=== PATIENT | female | born 1990 | race Caucasian/White ===

== ENCOUNTER 2018-06-13 14:30 | Emergency (ER) | payer OTHER ==
[~2018-06-13] VITALS: Ht 157.5 cm; Wt 61.2 kg
--- NOTE | 2018-06-13 16:23 | PHYS DOC ---
Past History Past Medical History: Cancer Past Surgical History: No Surgical History Alcohol Use: Occasionally Drug Use: Marijuana Adult General Chief Complaint Chief Complaint: UPPER EXTREMITY INJURY HPI HPI 27-year-old female presents after fall in a barn 2 days ago. The patient fell and had pain in her right and left forearms. She was splinted by EMS, but they said they could not take her to so she did not get transported. The patient hoped that her arms are broken, but is concerned as she still has significant amount of pain and cannot move them without a lot of pain. She adamantly denies that she is abused or that this was caused by another person. She is unsure how she fell or how she landed. She is not sure if she was knocked unconscious. At this time, she has bilateral forearm pain, right rib pain, and right ankle pain. She has multiple superficial scratches. Review of Systems Review of Systems Constitutional: Denies fever or chills [] Eyes: Denies change in visual acuity, redness, or eye pain [] HENT: Denies nasal congestion or sore throat [] Respiratory: Denies cough or shortness of breath [] Cardiovascular: No additional information not addressed in HPI [] GI: Denies abdominal pain, nausea, vomiting, bloody stools or diarrhea [] : Denies dysuria or hematuria [] Musculoskeletal: Bilateral arm pain, right ankle pain, right rib pain[] Integument: Denies rash or skin lesions [] Neurologic: Denies headache, focal weakness or sensory changes [] Endocrine: Denies polyuria or polydipsia [] All other systems were reviewed and found to be within normal limits, except as documented in this note. Current Medications Current Medications Current Medications Medications (Trade) Dose Ordered Sig/[facility] Start Time Stop Time Status Last Admin Dose Admin Morphine Sulfate (Morphine 4mg Syringe) 4 mg 1X ONCE 06/13/18 16:30 06/13/18 16:31 UNV Ondansetron HCl (Zofran) 4 mg 1X ONCE 06/13/18 16:30 06/13/18 16:31 UNV Sodium Chloride 1,000 ml @ 1,000 mls/hr 1X ONCE 06/13/18 16:30 06/13/18 17:29 UNV Allergies Allergies Allergies Coded Allergies Type Severity Reaction Last Updated Verified Sulfa (Sulfonamide Antibiotics) Allergy Unknown 06/13/18 Yes Physical Exam Physical Exam Constitutional: Well developed, well nourished, no acute distress, non-toxic appearance. Tearful.[] HENT: Normocephalic, atraumatic, bilateral external ears normal, oropharynx moist, no oral exudates, nose normal. [] Eyes: PERRLA, EOMI, conjunctiva normal, no discharge. [] Neck: Normal range of motion, no tenderness, supple, no stridor. [] Cardiovascular:Heart rate regular rhythm, no murmur [] Lungs & Thorax: Bilateral breath sounds clear to auscultation. Tenderness over right ribs. [] Abdomen: Bowel sounds normal, soft, no tenderness, no masses, no pulsatile masses. [] Skin: Warm, dry, no erythema, no rash. [] Back: No tenderness, no CVA tenderness. [] Extremities: Bilateral forearms in splints. Tender to palpation, distal forearm swelling with some ecchymosis. Right lateral ankle tenderness.[] Neurologic: Alert and oriented X 3, normal motor function, normal sensory function, no focal deficits noted. [] Psychologic: Affect normal, judgement normal, mood normal. [] Current Patient Data Vital Signs Vital Signs Date Time Temp Pulse Resp B/P (MAP) Pulse Ox O2 Delivery O2 Flow Rate FiO2 06/13/18 14:30 98.1 90 16 100 Room Air EKG EKG [] Radiology/Procedures Radiology/Procedures [] Course & Med Decision Making Course & Med Decision Making Pertinent Labs and Imaging studies reviewed. (See chart for details) The patient does not seem to be telling us the complete story. EMS knows the patient and took her to [facility] 2 days ago. She was placed in splints and was supposed to go to at that time but refused. She appeared to be intoxicated or on drugs at that time. She does not appear to be intoxicated at this time. Her urine drug screen is pending. Patient has comminuted fractures of her bilateral, distal radius. Ulna are intact bilaterally. Patient was given 4 mg of Zofran and 8 mg of morphine in the ED. The patient would like to go to . We have contacted transfer center and the decision is pending. Signing the patient out to Dr. Casillas at 1854. [] Dragon Disclaimer Dragon Disclaimer This electronic medical record was generated, in whole or in part, using a voice recognition dictation system. Departure Departure: Impression: Primary Impression: Fracture of both radius bones Disposition: XFER SHT-TRM HOSP Condition: STABLE Referrals: PCP,NO (PCP) Problem Qualifiers Primary Impression: Fracture of both radius bones Encounter type: initial encounter Fracture type: closed Qualified Codes: S52.91XA - Unspecified fracture of right forearm, initial encounter for closed fracture; S52.92XA - Unspecified fracture of left forearm, initial encounter for closed fracture JAH RESENDIZ DO Jun 13, 2018 16:23
[2018-06-13] MEDS ORDERED: IV NORMAL SALINE 1,000ML 1,000 ML IV ONE (16:30)
[2018-06-13] MEDS ORDERED: MORPHINE SULFATE 4 MG/ML DISP.SYRIN. IV ONE ×2 (16:30→18:45)
[2018-06-13] MEDS ORDERED: ONDANSETRON PF 4 MG/2 ML VIAL. IV ONE (16:30)
[2018-06-13 18:48] VITALS: BP 107/61
[2018-06-13] MEDS ORDERED: MORPHINE SULFATE 10 MG/ML SYRINGE. SQ ONE (20:00)
--- NOTE | 2018-06-13 20:23 | RAD ---
History: Injury from fall 3 views right ankle: AP lateral oblique views The visualized osseous structures appear normal. There is mild soft tissue swelling over the lateral malleolus. IMPRESSION: Soft tissue swelling over the lateral malleolus could be secondary to ligamentous injury. There is no evidence of fracture or dislocation. End impression 4 view C-spine AP lateral open mouth and odontoid views There is minimal anterolisthesis of C4 on C5 and C5 on C6. There is reversal of normal cervical lordosis at C5-C6. The facets appear perched or even jumped at this level. There is minimal loss of stature of the C6 vertebral body. There is mild soft tissue prominence at this level. The dens appears normal. The C1-C2 relationship is normal. There is degenerative changes at C6-C7 with marginal spurring of endplates. IMPRESSION: Possible perched or jumped facet at C5-C6. There may impaction of superior endplate of C6 as well. End impression Ribs left with PA chest History: Pain PA view of the chest and dedicated views of the left ribs were obtained. The heart and pulmonary vessels appear normal. The lungs and pleural margins are clear. The visualized osseous structures appear intact. There is dextro convex scoliosis of the thoracic spine. Impression: No acute findings. No evidence of a bony displaced rib fracture. End impression 3 views bilateral wrist: AP lateral oblique views of the wrists bilaterally On the right there is a moderately comminuted fracture of the distal radius with impaction and mild posterior displacement. On the left there is a mildly comminuted fracture of the distal radius with impaction and mild posterior angulation. IMPRESSION: Fractures of the distal radius bilaterally. End impression 2 view bilateral forearm AP lateral views of the forearm bilaterally There is fractures the distal radius bilaterally. The remaining visualized osseous structures appear normal. IMPRESSION: Fractures of distal radius bilaterally. See 4 view C-spine. End impression These results were called to and verified by read back at the time of dictation. FOR INTERNAL CODING PURPOSES RESULT CODE: (C) Electronically signed by: Greg Huitron III, MD (06/13/2018 8:19 PM) [facility]
[2018-06-13] MEDS ORDERED: CONTRAST GIVEN MC PRN (21:00)
[2018-06-13] MEDS ORDERED: IOHEXOL 300 MG/ML 75 ML VIAL. IV ONE (21:00)
--- NOTE | 2018-06-13 21:35 | RAD ---
CT Head W/O Contrast: History: Fall 2-4 days ago. Right sided pain behind ear/neck and radiating to right front of chest. Patient shielded Comparison: none Axial images were obtained without contrast. The reyna and white matter appears normal and symmetrical for the patients age. There is no mass effect, extraaxial fluid collections or hydrocephalus. There is no gross bleed. There is no focal loss of reyna-white matter distinction to suggest acute ischemia, i.e. stroke. Impression: No acute findings. End impression CT C-Spine without contrast: Clinical History: Fall 2-4 days ago. Right sided pain behind ear/neck and radiating to right front of chest. Patient shielded Technique: Axial helical images of the cervical spine were obtained without contrast, axial coronal and sagittal reconstruction was performed. Findings: There is reversal of the normal cervical lordosis centered at C5-C6. Visualized osseous structures appear normal. There is mild deformity of the superior endplate of C6 which is likely chronic as there is no fracture line. There is no prevertebral soft tissue swelling. Impression: 1. Reversal of the normal cervical lordosis and deformity of C6 is felt to be chronic. There is no fracture and there is no acute malalignment. 2. No acute findings. Clinical correlation suggested. PQRS Compliance Statement: One or more of the following individualized dose reduction techniques were utilized for this examination: 1. Automated exposure control 2. Adjustment of the mA and/or kV according to patient size 3. Use of iterative reconstruction technique Electronically signed by: Greg Huitron III, MD (06/13/2018 9:32 PM) [facility]
[2018-06-13 21:38] LABS: BASO # 0.1 x10^3/uL (0.0-0.2); BASO % 1 % (0-3); EOS # 0.2 x10^3/uL (0.0-0.7); EOS % 3 % (0-3); HEMATOCRIT 33.6 % (36.0-47.0); HEMOGLOBIN 11.4 g/dL (12.0-15.5); LYMPH # 1.7 x10^3/uL (1.0-4.8); LYMPH % 29 % (24-48); MEAN CORPUSCULAR HEMOGLOBIN 30 pg (25-35); MEAN CORPUSCULAR HGB CONC 34 g/dL (31-37); MEAN CORPUSCULAR VOLUME 89 fL (79-100); MONO # 0.6 x10^3/uL (0.0-1.1); MONO % 11 % (0-9); NEUT # 3.2 x10^3uL (1.8-7.7); NEUT % 56 % (31-73); PLATELET COUNT 145 x10^3/uL (140-400); RED BLOOD COUNT 3.79 x10^6/uL (3.50-5.40); RED CELL DISTRIBUTION WIDTH 13.8 % (11.5-14.5); WHITE BLOOD COUNT 5.8 x10^3/uL (4.0-11.0)
[2018-06-13 22:15] LABS: ALBUMIN 3.2 g/dL (3.4-5.0); ALBUMIN/GLOBULIN RATIO 0.9 (1.0-1.7); CALCIUM 8.5 mg/dL (8.5-10.1); CREATININE 0.7 mg/dL (0.6-1.0); GFR 100.4; POTASSIUM 3.2 mmol/L (3.5-5.1); TOTAL BILIRUBIN 0.6 mg/dL (0.2-1.0); TOTAL PROTEIN 6.7 g/dL (6.4-8.2)
--- NOTE | 2018-06-13 22:32 | RAD ---
3 view right and left elbow 06/13/2018 CLINICAL INDICATION: Bilateral wrist fractures. COMPARISON: None. FINDINGS: Right elbow: No acute fracture or traumatic malalignment. No significant elbow joint effusion. There is an intravenous catheter at the antecubital fossa. Partial visualization of forearm splinting device. Left elbow: No acute fracture or traumatic malalignment. Joint spaces maintained. No significant elbow joint effusion. IMPRESSION: No acute osseous abnormality in either elbow. Electronically signed by: Juanito Miller MD (06/13/2018 10:29 PM) [facility]
--- NOTE | 2018-06-13 23:48 | RAD ---
INDICATION: Omni 300, 75ml IV. Fell out of barn 2-4 days ago. Pain in upper right chest. Hx cervical cancer; invasive metastatic carcinoma w/chemo and radiation. COMPARISON: None. TECHNIQUE: Axial CT images obtained through the chest, abdomen and pelvis with contrast. One or more of the following individualized dose reduction techniques were utilized for this examination: 1. Automated exposure control; 2. Adjustment of the mA and/or kV according to patient size; 3. Use of iterative reconstruction technique. FINDINGS: Chest: No evidence of pneumothorax. No focal airspace consolidation. The thoracic aorta is not aneurysmal. Portion of a ascending thoracic aorta obscured by motion. [place] shaped soft tissue density anterior mediastinum. Could be from thymic tissue. Scoliotic curvature of the spine. Sub-4 mm right lower lung nodule. Abdomen and pelvis: The abdominal aorta is not aneurysmal. There are some enlarged lymph nodes in the groin bilaterally. For example in the right groin measuring up to about 10 mm short axis. Central regional low density within the liver measuring up to approximately 41 x 20 mm. No peripancreatic fluid collection. No perisplenic hemorrhage. No left-sided hydronephrosis. No right-sided hydronephrosis. Subcentimeter low-density right renal lesion. Most commonly from causes such as cyst in a patient of this age. Urinary bladder is partially distended at time of exam. No dilated loops of bowel to suggest obstruction. Fullness of right adnexa. No dilated loops of bowel to suggest obstruction. Scoliotic curvature of the spine. IMPRESSION: 1. No evidence of vascular injury. 2. There is a central low density masslike structure within the liver. Could be neoplastic in nature given the patient's reported history but if more complete characterization is desired a nonemergent liver protocol MRI could further evaluate. Benign lesions the liver could also have this appearance and correlation is needed with the patient's history. Causes such as a hepatic contusion would be considered less likely given the appearance and location. 3. Right lung nodule is seen and follow-up could be obtained to ensure no growth given the patient's reported history. 4. Scoliotic curvature of spine. Electronically signed by: Eric Chirinos MD (06/13/2018 11:44 PM) [facility]
[2018-06-14] MEDS ORDERED: MORPHINE SULFATE 10 MG/ML SYRINGE. SQ ONE
== END 2018-06-14 00:28 | disposition short-term general hospital (02) ==
LOC: ER 14:30
DX: S52.502A Unspecified fracture of the lower end of left radius, initial encounter for closed fracture (principal); S52.501A Unspecified fracture of the lower end of right radius, initial encounter for closed fracture; M25.571 Pain in right ankle and joints of right foot; R07.81 Pleurodynia; Z88.2 Allergy status to sulfonamides; W18.39XA Other fall on same level, initial encounter; Y93.89 Activity, other specified; Y92.89 Other specified places as the place of occurrence of the external cause; Y99.8 Other external cause status
CPT/HCPCS: 29125; 36415; 70450; 71101; 71260; 72040; 72125; 73080; 73090; 73110; 73610; 74177; 80053; 85025; 96372; 96374; 96375; 96376; 99285; J2270; J2405; Q9967; J7030

== ENCOUNTER 2019-02-27 13:22 | Emergency (ER) | payer MEDICAID, OTHER ==
[2019-02-27 13:54] VITALS: BP 100/58
[2019-02-27] MEDS ORDERED: IV NORMAL SALINE 1,000ML 1,000 ML IV SCH (13:56)
[2019-02-27] MEDS ORDERED: ONDANSETRON PF 4 MG/2 ML VIAL. IV ONE (14:00)
--- NOTE | 2019-02-27 14:31 | PHYS DOC ---
Past History Past Medical History: Cancer Past Surgical History: No Surgical History Alcohol Use: Occasionally Drug Use: Marijuana Adult General Chief Complaint Chief Complaint: ABDOMINAL PAIN IN HPI HPI Patient is a 28-year-old female A1 who presents at 20 weeks 6 days gestational age per EDC that patient provided. Patient states she has been having some pelvic cramping for the last few days but then today she was arrested and taken to residential and cramping had gotten much worse. She states that she is having symptoms very similar to contractions and states that it's about every 7 minutes right now. Patient rates her pain at a 7 to an 8 out of 10. She denies any chest pain or shortness of breath. She denies any nausea or vomiting.[] Review of Systems Review of Systems Constitutional: Denies fever or chills [] Respiratory: Denies cough or shortness of breath [] Cardiovascular: No additional information not addressed in HPI [] GI: Destrehan of lower abdominal/pelvic pain without vomiting or diarrhea [] : Denies dysuria or hematuria. Denies vaginal bleeding. [] Musculoskeletal: Complains of lower back pain [] All other systems were reviewed and found to be within normal limits, except as documented in this note. Current Medications Current Medications Current Medications Medications (Trade) Dose Ordered Sig/[facility] Start Time Stop Time Status Last Admin Dose Admin Ondansetron HCl (Zofran) 4 mg 1X ONCE 02/27/19 14:00 02/27/19 14:02 DC Sodium Chloride 1,000 ml @ 1,000 mls/hr Q1H 02/27/19 13:56 02/27/19 14:55 Allergies Allergies Allergies Coded Allergies Type Severity Reaction Last Updated Verified Sulfa (Sulfonamide Antibiotics) Allergy Unknown 06/13/18 Yes Physical Exam Physical Exam Constitutional: Well developed, well nourished, no acute distress, non-toxic appearance. [] HENT: Normocephalic, atraumatic, bilateral external ears normal, oropharynx moist, no oral exudates, nose normal. [] Eyes: PERRLA, EOMI, conjunctiva normal, no discharge. [] Neck: Normal range of motion, no tenderness, supple, no stridor. [] Cardiovascular: Mildly tachycardic rate with regular rhythm[] Lungs & Thorax: Bilateral breath sounds clear to auscultation [] Abdomen: Bowel sounds normal, gravid. [] [employer] ARCHITECT: Pelvic exam was performed with nurse information and referral director present. Closed cervix visualized. Skin: Warm, dry, no erythema, no rash. [] Extremities: No tenderness, no cyanosis, no clubbing, ROM intact. [] Neurologic: Alert and oriented X 3, no focal deficits noted. [] EKG EKG [] Radiology/Procedures Radiology/Procedures [] Impressions: PROCEDURE: OB > 14 WKS W/TV EXAM: Obstetrics sonogram. HISTORY: Pain. TECHNIQUE: Sonographic imaging of a gravid uterus was performed. COMPARISON: None. FINDINGS: There is a single intrauterine fetus in cephalic presentation with a normal heart rate of 139 bpm. The amniotic fluid index is normal at 12.6 cm. The cervix is closed and shortened to a measurement of 1.9 cm transvaginally. There are normal umbilical cord systolic to diastolic Doppler ratios. The stomach, kidneys, bladder, spine, brain, facial profile, extremities and heart are unremarkable. There is a three-vessel umbilical cord with normal insertion. body motion is seen during the exam. There is a grade 1 fundal placenta without evidence of previa. The biparietal diameter is 6.5 cm, corresponding with 26 weeks and 1 day. The head circumference is 23.8 cm, corresponding with 25 weeks and 6 days. The abdominal circumference is 21.53 cm, corresponding with 26 weeks and 0 days. The femoral length is 5.2 cm, corresponding with 27 weeks and 4 days. The estimated gestational age patient combined ultrasound measurements is 26 weeks and 3 days and the estimated due date is 06/02/2019. The estimated weight is 954 g. IMPRESSION: 1. Single imaging fetus in cephalic presentation with a normal heart rate and gestational age based on ultrasound measurements of 26 weeks and 3 days. 2. Shortened cervix measuring 1.9 cm transvaginally. The cervix is closed. No funneling is seen. Electronically signed by: Dhara Moreno MD (02/27/2019 3:16 PM) [facility] [place]CTATED AND SIGNED BY: DHARA MORENO MD DATE: 02/27/19 1516 Course & Med Decision Making Course & Med Decision Making Pertinent Labs and Imaging studies reviewed. (See chart for details) A chest case was discussed with Dr. Franz who agrees to accept patient in transfer to [facility] L&D floor. Prior to transfer of patient, patient left the department without notifying staff. Attempts were made to contact Police Department to return patient to the emergency room in order to remove her IV. [place] [employer] notified staff that they were not able to bring patient to emergency room against her will despite having left with IV in place. Dragon Disclaimer Dragon Disclaimer This electronic medical record was generated, in whole or in part, using a voice recognition dictation system. Departure Departure: Impression: Primary Impression: Abdominal pain affecting Disposition: 07 AGAINST MEDICAL ADVICE (patient eloped from emergency room without notifying staff) Condition: STABLE Referrals: PCP,NO (PCP) KAILA ANDERSON Jr. DO Feb 27, 2019 14:31
[2019-02-27 14:33] LABS: BASO % 0 % (0-3); EOS # 0.1 x10^3/uL (0.0-0.7); EOS % 1 % (0-3); HEMATOCRIT 37.7 % (36.0-47.0); HEMOGLOBIN 12.7 g/dL (12.0-15.5); LYMPH # 1.5 x10^3/uL (1.0-4.8); LYMPH % 18 % (24-48); MEAN CORPUSCULAR HEMOGLOBIN 31 pg (25-35); MEAN CORPUSCULAR HGB CONC 34 g/dL (31-37); MEAN CORPUSCULAR VOLUME 92 fL (79-100); MONO # 0.6 x10^3/uL (0.0-1.1); MONO % 8 % (0-9); NEUT # 5.8 x10^3uL (1.8-7.7); NEUT % 73 % (31-73); PLATELET COUNT 145 x10^3/uL (140-400); RED BLOOD COUNT 4.11 x10^6/uL (3.50-5.40); RED CELL DISTRIBUTION WIDTH 13.1 % (11.5-14.5); WHITE BLOOD COUNT 7.9 x10^3/uL (4.0-11.0)
[2019-02-27 14:35] LABS: CALCIUM 8.7 mg/dL (8.5-10.1); CREATININE 0.5 mg/dL (0.6-1.0); GFR 146.9; POTASSIUM 4.1 mmol/L (3.5-5.1)
[2019-02-27 14:41] LABS: ALBUMIN 2.7 g/dL (3.4-5.0); DIRECT BILIRUBIN 0.1 mg/dL (0.0-0.2); MAGNESIUM 1.8 mg/dL (1.8-2.4); TOTAL BILIRUBIN 0.1 mg/dL (0.2-1.0); TOTAL PROTEIN 6.6 g/dL (6.4-8.2)
[2019-02-27 15:00] LABS: BACTERIA,URINE MOD /HPF (0-FEW); BILIRUBIN,URINE NEG (NEG); CLARITY,URINE HAZY; COLOR,URINE YELLOW; GLUCOSE,URINE NEG (NEG); NITRITE,URINE NEG (NEG); RBC,URINE 0 /HPF (0-2); SQUAMOUS EPITHELIAL CELL,UR OCC /LPF; UROBILINOGEN,URINE 0.2 mg/dL (0.2 mg/dL)
--- NOTE | 2019-02-27 15:19 | RAD ---
EXAM: Obstetrics sonogram. HISTORY: Pain. TECHNIQUE: Sonographic imaging of a gravid uterus was performed. COMPARISON: None. FINDINGS: There is a single intrauterine fetus in cephalic presentation with a normal heart rate of 139 bpm. The amniotic fluid index is normal at 12.6 cm. The cervix is closed and shortened to a measurement of 1.9 cm transvaginally. There are normal umbilical cord systolic to diastolic Doppler ratios. The stomach, kidneys, bladder, spine, brain, facial profile, extremities and heart are unremarkable. There is a three-vessel umbilical cord with normal insertion. body motion is seen during the exam. There is a grade 1 fundal placenta without evidence of previa. The biparietal diameter is 6.5 cm, corresponding with 26 weeks and 1 day. The head circumference is 23.8 cm, corresponding with 25 weeks and 6 days. The abdominal circumference is 21.53 cm, corresponding with 26 weeks and 0 days. The femoral length is 5.2 cm, corresponding with 27 weeks and 4 days. The estimated gestational age patient combined ultrasound measurements is 26 weeks and 3 days and the estimated due date is 06/02/2019. The estimated weight is 954 g. IMPRESSION: 1. Single imaging fetus in cephalic presentation with a normal heart rate and gestational age based on ultrasound measurements of 26 weeks and 3 days. 2. Shortened cervix measuring 1.9 cm transvaginally. The cervix is closed. No funneling is seen. Electronically signed by: Dhara Moreno MD (02/27/2019 3:16 PM) [facility] [place]
== END 2019-02-27 15:40 | disposition left against medical advice (07) ==
LOC: ER 13:22
DX: O26.892 Other specified pregnancy related conditions, second trimester (principal); R10.2 Pelvic and perineal pain; M54.5 Low back pain; Z3A.26 26 weeks gestation of pregnancy; Z88.2 Allergy status to sulfonamides
CPT/HCPCS: 36415; 76805; 76817; 80048; 80076; 81001; 83735; 85025; 87086; 96374; 99285; J2405; J7030

== ENCOUNTER 2021-05-16 18:26 | Emergency (ER) | payer MEDICAID ==
[~2021-05-16] VITALS: Ht 158.8 cm; Wt 58.0 kg
[2021-05-16] MEDS ORDERED: KETOROLAC 15 MG/ML VIAL. IVP ONE (20:00)
[2021-05-16] MEDS ORDERED: ONDANSETRON PF 4 MG/2 ML VIAL. IVP ONE (20:00)
[2021-05-16] MEDS ORDERED: IV NORMAL SALINE 1,000ML 1,000 ML IV SCH (20:00)
[2021-05-16 20:21] LABS: BASO % 0 % (0-3); EOS # 0.1 x10^3/uL (0.0-0.7); EOS % 2 % (0-3); HEMATOCRIT 36.7 % (36.0-47.0); HEMOGLOBIN 12.1 g/dL (12.0-15.5); LYMPH # 1.4 x10^3/uL (1.0-4.8); LYMPH % 31 % (24-48); MEAN CORPUSCULAR HEMOGLOBIN 30 pg (25-35); MEAN CORPUSCULAR HGB CONC 33 g/dL (31-37); MEAN CORPUSCULAR VOLUME 92 fL (79-100); MONO # 0.4 x10^3/uL (0.0-1.1); MONO % 10 % (0-9); NEUT # 2.6 x10^3uL (1.8-7.7); NEUT % 58 % (31-73); PLATELET COUNT 130 x10^3/uL (140-400); RED BLOOD COUNT 3.99 x10^6/uL (3.50-5.40); RED CELL DISTRIBUTION WIDTH 13.5 % (11.5-14.5); WHITE BLOOD COUNT 4.6 x10^3/uL (4.0-11.0)
[2021-05-16 20:28] LABS: CALCIUM 8.5 mg/dL (8.5-10.1); CREATININE 0.7 mg/dL (0.6-1.0); GFR 98.3; POTASSIUM 3.3 mmol/L (3.5-5.1)
--- NOTE | 2021-05-16 20:34 | PHYS DOC ---
Past History Past Medical History: Cancer Additional Past Medical Histor: short term memory loss, Cervical cancer (YESICA CORDOVA APRN) Past Surgical History: Other Additional Past Surgical Histo: bilateral wrist surgery, neph. tube (right) (YESICA CORDOVA APRN) Alcohol Use: None Drug Use: None (YESICA CORDOVA APRN) General Adult EDM: Chief Complaint: FLANK PAIN HPI: HPI: Patient is a 30-year-old female who presents with left-sided flank pain. Patient states that the pain does radiate down into her left abdomen. Patient reports pain started 1 week ago. Patient also has had some nausea. Denies vomiting, diarrhea, fever. Denies dysuria or frequency. Patient has history of cervical cancer. (YESICA CORDOVA APRN) Review of Systems: Review of Systems: ROS At least 10 ROS systems have been reviewed and are negative except as documented in the HPI. General: Negative except as outlined in HPI above. Skin: Negative except as outlined in HPI above. HEENT: Negative except as outlined in HPI above. Neck: Negative except as outlined in HPI above. Respiratory: Negative except as outlined in HPI above.. Cardiovascular: Negative except as outlined in HPI above. Abdomen: Negative except as outlined in HPI above. : Negative except as outlined in HPI above. Back/MSK: Negative except as outlined in HPI above. Neuro: Negative except as outlined in HPI above. Psych: Negative except as outlined in HPI above. (YESICA CORDOVA APRN) Current Medications: Current Meds: Current Medications Medications (Trade) Dose Ordered Sig/Juliet Start Time Stop Time Status Last Admin Dose Admin Ketorolac Tromethamine (Toradol 15mg Vial) 15 mg 1X ONCE 05/16/21 20:00 05/16/21 20:01 DC 05/16/21 20:23 15 MG Ondansetron HCl (Zofran) 4 mg 1X ONCE 05/16/21 20:00 05/16/21 20:01 DC 05/16/21 20:23 4 MG Sodium Chloride 1,000 ml @ 1,000 mls/hr Q1H 05/16/21 20:00 05/16/21 20:59 05/16/21 20:22 1,000 MLS/HR (YESICA CORDOVA APRN) Allergies: Allergies: Allergies Coded Allergies Type Severity Reaction Last Updated Verified Sulfa (Sulfonamide Antibiotics) Allergy Unknown 06/13/18 Yes (YESICA CORDOVA APRN) Physical Exam: PE: Constitutional: Well developed, well nourished, no acute distress, non-toxic appearance. [] HENT: bilateral external ears normal, oropharynx moist, no oral exudates, nose normal. [] Eyes: PERRLA, EOMI, conjunctiva normal, no discharge. [] Neck: Normal range of motion, no tenderness, supple, no stridor. [] Cardiovascular:Heart rate regular rhythm, no murmur [] Lungs & Thorax: Bilateral breath sounds clear to auscultation [] Abdomen: Bowel sounds normal, soft, left, lower abdomen tenderness Skin: Warm, dry, no erythema, no rash. [] Back: No tenderness, left-sided CVA tenderness Extremities: No tenderness, no cyanosis, no clubbing, ROM intact, no edema. [] Neurologic: Alert and oriented X 3, normal motor function, normal sensory function, no focal deficits noted. [] Psychologic: Affect normal, judgement normal, mood normal. [] (YESICA CORDOVA APRN) Current Patient Data: Labs: Laboratory Tests Test 05/16/21 19:08 POC Urine HCG, Qualitative hcg negative (Negative) Vital Signs: Vital Signs Date Time Temp Pulse Resp B/P (MAP) Pulse Ox O2 Delivery O2 Flow Rate FiO2 05/16/21 20:25 65 18 120/71 (87) 100 Room Air 05/16/21 19:28 98.8 (YESICA CORDOVA APRN) EKG: EKG: [] (YESICA CORDOVA APRN) Radiology/Procedures: Radiology/Procedures: []Exam Date: 05/16/2021 8:[address] ABDOMEN+PELVIS WO Indication: Reason: FLANK PAIN, nausea / Spl. Instructions: / History: . TECHNIQUE: CT examination of the abdomen and pelvis was performed without oral or intravenous contrast. One or more of the following dose reduction techniques were utilized: *Automated exposure control (AEC) *Adjustment of mA and/or kV according to patient size *Use of iterative reconstruction technique *CT scan done according to ALARA, or ALARA/IMAGE GENTLY COMPARISON: June 13, 2018 FINDINGS: The visualized lung bases are clear. The liver, gallbladder, spleen, pancreas, and adrenal glands are normal. There is a 2 mm nonobstructing calculus in the right kidney. The kidneys are otherwise normal bilaterally. No hydronephrosis or hydroureter is seen. No left urinary tract calculi are seen. Urinary bladder is normal in appearance. There is no bowel obstruction or inflammation. No evidence for acute tatyana endicitis. No significant atherosclerotic calcifications are seen. No lymphadenopathy or ascites is seen. Degenerative changes are seen in the spine. IMPRESSION: 2 mm nonobstructing calculus in the right kidney. No hydronephrosis or hydroureter. Electronically signed by: Mathieu Jacobsen MD (05/16/2021 8:40 PM) [facility] (YESICA CORDOVA APRN) Heart Score: C/O Chest Pain: No Risk Factors: Risk Factors: DM, Current or recent (<one month) smoker, HTN, HLP, family history of CAD, obesity. Risk Scores: Score 0 - 3: 2.5% MACE over next 6 weeks - Discharge Home Score 4 - 6: 20.3% MACE over next 6 weeks - Admit for Clinical Observation Score 7 - 10: 72.7% MACE over next 6 weeks - Early Invasive Strategies (YESICA CORDOVA APRN) Course & Med Decision Making: Course & Med Decision Making Pertinent Labs and Imaging studies reviewed. (See chart for details) [] 30-year-old female presents with left-sided flank pain that radiates to her left lower abdomen. Work-up in ER consisted of UA, labs, CT abdomen pelvis. Patient given Toradol and Zofran for nausea and pain. NS bolus started. CT abdomen pelvis shows 2 mm nonobstructing calculus in the right kidney. Urine is negative for infection. Patient still reporting pain. Patient given 4 mg of morphine. Discussed all results with patient. Patient sent home with Flomax, hydrocodone, Zofran. Discussed return precautions with patient. Patient verbalized understanding. (YESICA CORDOVA APRN) Dragon Disclaimer: Dragon Disclaimer: This electronic medical record was generated, in whole or in part, using a voice recognition dictation system. (YESICA CORDOVA APRN) Departure Departure: Impression: Primary Impression: Kidney stone on left side Disposition: HOME / SELF CARE / HOMELESS Condition: STABLE Referrals: PCP,TROY (PCP) Patient Instructions: Diet for Kidney Stones Additional Instructions: You are seen emergency room for kidney stone on the left side. You were given fluids and medication to help with pain. Sending you home with pain medication, nausea medication, and Flomax to help with passing of the stone. Please follow-up with your PCP for further management. Return to the emergency room if you have worsening symptoms or concerns such as uncontrolled vomiting, uncontrolled pain, fever. EMERGENCY DEPARTMENT GENERAL DISCHARGE INSTRUCTIONS Thank you for coming to [facility] (ED) today and trusting us with you care. We trust that you had a positivie experience in our Emergency Department. If you wish to speak to the department management, you may call the director at [phone]. YOUR FOLLOW UP INSTRUCTIONS ARE FOLLOWS: 1. Do you have a private Doctor? If you do not have a private doctor, please ask for a resource list of physicians or clinics that may be able to assist you with fol low up care. 2. The Emergency Physician has interpreted your x-rays. The X-Ray specialist will also review them. If there is a change in the findings, you will be notified in 48 hours when at all possible. 3. A lab test or culture has been done, your results will be reviewed and you will be notified if you need a change in treatment. ADDITIONAL INSTRUCTIONS AND INFORMATION: 1. Your care today has been supervised by a physician who is specially trained in emergency care. Many problems require more than one evaluation for a complete diagnosis and treatment. We recommend that you schedule your follow up appointment as r ecommended to ensure complete treatment of you illness or injury. If you are unable to obtain follow up care and continue to have a problem, or if your condition worsens, we recommend that you return to the ED. 2. We are not able to safely determine your condition over the phone nor are we able to give sound medical advice over the phone. For these safety reasons, if you call for medical advice we will ask you to come to the ED for further evaluation. 3. If you have any questions regarding these discharge instructions please call the ED at [phone]. SAFETY INFORMATION: In the interest of safety, wellness, and injury prevention; we encourage you to wear your sealbelt, if you smoke; quite smoking, and we encourage family to use a protective helmet for bicycling and other sporting events that present an increased risk for head injury. IF YOUR SYMPTOMS WORSEN OR NEW SYMPTOMS DEVELOP, OR YOU HAVE CONCERNS ABOUT YOUR CONDITION; OR IF YOUR CONDITION WORSENS WHILE YOU ARE WAITING FOR YOUR FOLLOW UP APPOINTMENT; EITHER CONTACT YOUR PRIMARY CARE DOCTOR, THE PHYSICIAN WHOSE NAME AND NUMBER YOU WERE GIVEN, OR RETURN TO THE ED IMMEDIATELY. Scripts Ondansetron (ONDANSETRON ODT) 4 Mg Tab.rapdis 4 MG PO TID PRN PRN for NAUSEA for 7 Days, #21 TAB Prov: YESICA CORDOVA APRN 05/16/21 Hydrocodone Bit/Acetaminophen (HYDROCODONE-APAP 5-325 ) 1 Each Tablet 0.5-1 TAB PO PRN Q6HRS PRN for PAIN for 3 Days, #12 TAB 0 Refills Prov: YESICA CORDOVA APRN 05/16/21 Tamsulosin Hcl (FLOMAX) 0.4 Mg Cap.er.24h 1 CAP PO DAILY for kidney stone for 14 Days, #14 CAP 0 Refills Prov: YESICA CORDOVA APRN 05/16/21 Dragon Disclaimer This chart was dictated in whole or in part using Voice Recognition software in a busy, high-work load, and often noisy Emergency Department environment. It may contain unintended and wholly unrecognized errors or omissions. (JASON DIEHL MD) Attending Signature Attending Signature I have participated in the care of this patient and I have reviewed and agree with all pertinent clinical information above including history, exam, and recommendations. (JASON DIEHL MD) YESICA CORDOVA APRN May 16, 2021 20:34 JASON DIEHL MD May 17, 2021 23:06
--- NOTE | 2021-05-16 20:42 | RAD ---
Exam Date: 05/16/2021 8:[address] ABDOMEN+PELVIS WO Indication: Reason: FLANK PAIN, nausea / Spl. Instructions: / History: . TECHNIQUE: CT examination of the abdomen and pelvis was performed without oral or intravenous contra st. One or more of the following dose reduction techniques were utilized: *Automated exposure control (AEC) *Adjustment of mA and/or kV according to patient size *Use of iterative reconstruction technique *CT scan done according to ALARA, or ALARA/IMAGE GENTLY COMPARISON: June 13, 2018 FINDINGS: The visualized lung bases are clear. The liver, gallbladder, spleen, pancreas, and adrenal glands are normal. There is a 2 mm nonobstructing calculus in the right kidney. The kidneys are otherwise normal bilaterally. No hydronephrosis or hydroureter is seen. No left uri nary tract calculi are seen. Urinary bladder is normal in appearance. There is no bowel obstruction or inflammation. No evidence for acute appendicitis. No significant atherosclerotic calcifications are seen. No lymphadenopathy or ascites is seen. Degenerative changes are seen in the spine. IMPRESSION: 2 mm nonobstructing calculus in the right kidney. No hydronephrosis or hydroureter. Electronically signed by: Mathieu Jacobsen MD (05/16/2021 8:40 PM) [facility]
[2021-05-16 20:49] LABS: CLARITY,URINE CLEAR; COLOR,URINE YELLOW; GLUCOSE,URINE NEG (NEG); NITRITE,URINE NEG (NEG); RBC,URINE 0 /HPF (0-2); UROBILINOGEN,URINE 0.2 mg/dL (0.2 mg/dL); WBC,URINE 0 /HPF (0-4)
[2021-05-16 20:51] LABS: BACTERIA,URINE FEW /HPF (0-FEW); SQUAMOUS EPITHELIAL CELL,UR OCC /LPF
[2021-05-16] MEDS ORDERED: HYDR-2155 PO (21:27)
[2021-05-16] MEDS ORDERED: ONDA4TAB12 PO (21:27)
[2021-05-16] MEDS ORDERED: TAMS0.4C97 PO (21:27)
[2021-05-16] MEDS ORDERED: TAMSULOSIN 0.4 MG CAP.ER.24H. PO ONE (21:30)
[2021-05-16] MEDS ORDERED: MORPHINE SULFATE 4 MG/ML DISP.SYRIN. IV ONE (21:30)
[2021-05-16] MEDS ORDERED: HYDROcodone/APAP 5/325MG 1 TAB TABLET PO ONE (22:15)
--- NOTE | 2021-05-16 22:24 | EKG ---
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
[2021-05-16 22:27] VITALS: BP 113/59
== END 2021-05-16 22:32 | disposition home or self-care (01) ==
LOC: ER 18:26
DX: N20.0 Calculus of kidney (principal); Z88.2 Allergy status to sulfonamides
CPT/HCPCS: 36415; 74176; 80048; 81001; 81025; 85025; 93005; 96361; 96374; 96375; 99285; J1885; J2270; J2405; J7030